=== PATIENT | female | born 1960 | race Two or more races ===

== ENCOUNTER 2023-03-08 21:56 | Inpatient (IN) | payer MEDICARE, MEDICAID ==
[~2023-03-08] VITALS: Ht 157.5 cm; Wt 72.0 kg
[2023-03-08 23:20] LABS: Basophils # (auto) 0.1 10 ^3/uL (0-0.2); Basophils % (auto) 1.4 % (0.0-2.0); Eosinophils # (auto) 0.7 10 ^3/uL (0-0.8); Eosinophils % (auto) 8.4 % (0.0-7.0); Hematocrit 37.3 % (36.0-46.0); Hemoglobin 12.2 g/dL (12.2-16.2); Lymphocytes # (auto) 3.9 10 ^3/uL (0.4-5.4); Lymphocytes % (auto) 46.2 % (10.0-50.0); Mean Corpuscular Hemoglobin 29.8 pg (28.0-32.0); Mean Corpuscular Hgb Conc. 32.7 g/dL (32.0-36.0); Mean Corpuscular Volume 91.3 fL (80.0-100.0); Monocytes % (auto) 12.2 % (0.0-12.0); Neutrophils # (auto) 2.7 10 ^3/uL (1.6-8.6); Neutrophils % (auto) 31.8 % (37.0-80.0); Red Blood Cells 4.09 10^6/uL (4.0-5.20); Red Cell Distribution Width 14.8 % (11.8-14.3); White Blood Cell 8.4 10^3/uL (4.4-10.8)
[2023-03-08 23:34] LABS: Alanine Aminotransferase 17 U/L (7-40); Albumin 3.7 g/dL (3.2-4.8); Alkaline Phosphatase 123 U/L (46-116); Anion Gap 6 (5-15); Aspartate Aminotransferase 27 U/L (13-40); BUN/Creatinine Ratio 13.6 (10.0-20.0); Bilirubin, Total 0.6 mg/dL (0.2-1.0); Blood Alcohol < 3.0 mg/dL (<10); Blood Urea Nitrogen 9 mg/dL (9-23); Calcium 8.9 mg/dL (8.7-10.4); Carbon Dioxide 26 mmol/L (20-30); Chloride 108 mmol/L (98-107); Glucose 101 mg/dL (74-106); INR 1.1 (0.9-1.15); Magnesium 1.9 mg/dL (1.6-2.6); Partial Thromboplastin Time 27.3 SEC (24.5-34.5); Potassium 3.7 mmol/L (3.5-5.1); Prothrombin Time 11.5 sec (9.3-11.8); Sodium 140 mmol/L (136-145)
[2023-03-09 00:23] LABS: Large Platelets FEW; Platelet Estimate Adequate
[2023-03-09 05:45] LABS: Urine Bacteria NONE SEEN /hpf (None Seen); Urine Blood Negative /uL (Negative); Urine Clarity HAZY (Clear); Urine Color Yellow (Yellow); Urine Mucus FEW (None Seen); Urine Protein, UAD 2+ (Negative); Urine Specific Gravity 1.022 (1.001-1.035); Urine Urobilinogen Normal (Negative); Urine WBC 4 /hpf (0 - 5)
[2023-03-09 06:30] VITALS: PULSE 98; RESP 18; O2SAT 97
[2023-03-09 06:33] LABS: Amphetamine Screen, Urine Neg (NEGATIVE); Barbiturate Scree,Urine Neg (NEGATIVE); Benzodiazephine Screen, Urine Neg (NEGATIVE); Cannabinoid Screen, Urine Neg (NEGATIVE); Cocaine Screen, Urine Neg (NEGATIVE); Opiate Scree,Urine Pos (NEGATIVE); Phencyclidine Screen, Urine Neg (NEGATIVE)
[2023-03-09] MEDS ORDERED: ACETAMINOPHEN 325 MG TAB PO PRN (07:30)
[2023-03-09] MEDS ORDERED: ONDANSETRON HCL 4 MG/2 ML VIAL IV PRN (07:30)
[2023-03-09] MEDS: LACTULOSE 20Gm/30ML SOLN PO SCH ×3 (07:57→22:42)
[2023-03-09] MEDS: HYDROcodone-ACET 5/325MG TAB PO PRN ×2 (07:57→22:43)
[2023-03-09] MEDS: ENOXAPARIN SOD 40 MG/0.4 ML SYRINGE SC SCH (10:27)
[2023-03-09 13:25] LABS: Basophils # (auto) 0.1 10 ^3/uL (0-0.2); Basophils % (auto) 1.8 % (0.0-2.0); Eosinophils # (auto) 0.4 10 ^3/uL (0-0.8); Eosinophils % (auto) 5.1 % (0.0-7.0); Hematocrit 34.4 % (36.0-46.0); Hemoglobin 11.4 g/dL (12.2-16.2); Lymphocytes # (auto) 2.8 10 ^3/uL (0.4-5.4); Lymphocytes % (auto) 40.5 % (10.0-50.0); Mean Corpuscular Volume 90.8 fL (80.0-100.0); Monocytes # (auto) 0.8 10 ^3/uL (0-1.3); Monocytes % (auto) 11.6 % (0.0-12.0); Neutrophils # (auto) 2.8 10 ^3/uL (1.6-8.6); Red Blood Cells 3.79 10^6/uL (4.0-5.20); Red Cell Distribution Width 14.9 % (11.8-14.3); White Blood Cell 6.9 10^3/uL (4.4-10.8)
[2023-03-09 13:53] LABS: Alanine Aminotransferase 16 U/L (7-40); Albumin 3.3 g/dL (3.2-4.8); Alkaline Phosphatase 116 U/L (46-116); Anion Gap 6 (5-15); Aspartate Aminotransferase 30 U/L (13-40); BUN/Creatinine Ratio 14.7 (10.0-20.0); Blood Urea Nitrogen 10 mg/dL (9-23); Calcium 8.4 mg/dL (8.7-10.4); Carbon Dioxide 23 mmol/L (20-30); Chloride 107 mmol/L (98-107); Glucose 303 mg/dL (74-106); Magnesium 1.8 mg/dL (1.6-2.6); Potassium 3.8 mmol/L (3.5-5.1); Sodium 136 mmol/L (136-145)
[2023-03-09 13:54] LABS: Bilirubin, Total 0.8 mg/dL (0.2-1.0); Total Protein 7.2 g/dL (5.7-8.2)
[2023-03-09] MEDS ORDERED: IOHEXOL 350 MG/ML 100ML IJ ONE (14:10)
[2023-03-09] MEDS: SODIUM CHLOR 0.9% PF (SALINE LOCK) 10ML VIAL/SYR IV SCH ×2 (14:21→22:43)
[2023-03-09] MEDS ORDERED: LORazepam 2MG/ML-1ML VIAL IV ONE (14:30)
[2023-03-09 19:20] VITALS: PULSE 97; RESP 20; O2SAT 96
[2023-03-09] MEDS ORDERED: METOPROLOL TARTRATE 25 MG TAB PO SCH (22:00)
[2023-03-09] MEDS ORDERED: DEXTROSE (50%) 50ML SYRG IV PRN (23:15)
[2023-03-09] MEDS ORDERED: HYDR-4902 PO (23:19)
[2023-03-09] MEDS ORDERED: RIFA550T PO (23:19)
[2023-03-09] MEDS ORDERED: INSLANTI SC (23:19)
[2023-03-09] MEDS ORDERED: OMEP20TA85 PO (23:19)
[2023-03-09] MEDS ORDERED: PANC3000 PO (23:19)
[2023-03-09] MEDS ORDERED: METO-289 PO (23:19)
[2023-03-09] MEDS ORDERED: LACT10SO3 PO (23:19)
[2023-03-09] MEDS ORDERED: INSU100I28 IJ (23:20)
[2023-03-09] MEDS: ACCU-CHEK COMFORT CURVE STRIP VI SCH (23:25)
[2023-03-09] MEDS: InsuLIN REG 1unit/0.01ml Soln (100units/ml) SC SCH (23:26)
[2023-03-10] MEDS: HYDROcodone-ACET 5/325MG TAB PO PRN ×3 (04:14→17:14)
[2023-03-10] MEDS: LACTULOSE 20Gm/30ML SOLN PO SCH ×3 (06:35→21:45)
[2023-03-10] MEDS: SODIUM CHLOR 0.9% PF (SALINE LOCK) 10ML VIAL/SYR IV SCH ×3 (06:36→21:46)
[2023-03-10] MEDS: ACCU-CHEK COMFORT CURVE STRIP VI SCH ×4 (06:36→21:01)
[2023-03-10] MEDS: InsuLIN REG 1unit/0.01ml Soln (100units/ml) SC SCH ×4 (06:37→21:54)
[2023-03-10] MEDS ORDERED: DEXTROSE (50%) 50ML SYRG IV PRN (07:15)
[2023-03-10 07:40] VITALS: PULSE 79; RESP 18; O2SAT 98
[2023-03-10 07:53] LABS: Basophils # (auto) 0.1 10 ^3/uL (0-0.2); Basophils % (auto) 2.2 % (0.0-2.0); Eosinophils # (auto) 0.6 10 ^3/uL (0-0.8); Eosinophils % (auto) 9.8 % (0.0-7.0); Hematocrit 35.2 % (36.0-46.0); Hemoglobin 11.2 g/dL (12.2-16.2); Lymphocytes # (auto) 3.1 10 ^3/uL (0.4-5.4); Mean Corpuscular Volume 90.6 fL (80.0-100.0); Monocytes # (auto) 0.7 10 ^3/uL (0-1.3); Monocytes % (auto) 10.4 % (0.0-12.0); Neutrophils # (auto) 1.9 10 ^3/uL (1.6-8.6); Neutrophils % (auto) 29.6 % (37.0-80.0); Nucleated Red Blood Cells % 0.1 %; Red Blood Cells 3.88 10^6/uL (4.0-5.20); Red Cell Distribution Width 14.7 % (11.8-14.3); White Blood Cell 6.4 10^3/uL (4.4-10.8)
[2023-03-10 08:03] LABS: Alanine Aminotransferase 17 U/L (7-40); Albumin 3.4 g/dL (3.2-4.8); Alkaline Phosphatase 125 U/L (46-116); Anion Gap 7 (5-15); Aspartate Aminotransferase 28 U/L (13-40); BUN/Creatinine Ratio 10.8 (10.0-20.0); Blood Urea Nitrogen 7 mg/dL (9-23); Calcium 8.9 mg/dL (8.5-10.1); Carbon Dioxide 25 mmol/L (20-30); Chloride 106 mmol/L (98-107); Cholesterol 122 mg/dL (< 200); Glucose 184 mg/dL (74-106); LDL Cholesterol 92 mg/dL (< 100); Potassium 3.9 mmol/L (3.5-5.1); Sodium 138 mmol/L (136-145); Triglycerides 51 mg/dL (< 150)
[2023-03-10 08:04] LABS: Bilirubin, Total 0.6 mg/dL (0.2-1.0); HDL Cholesterol 32 mg/dL (40-59); Total Protein 7.3 g/dL (5.7-8.2)
[2023-03-10] MEDS ORDERED: INSULIN LANTUS (GLARGINE) 1 /0.01ml (100units/ml) SC ONE (08:30)
[2023-03-10] MEDS ORDERED: PANTOPRAZOLE 40 MG/10 ML VIAL INJ IV SCH (10:00)
[2023-03-10 10:24] LABS: Folate (Folic Acid) > 24.00 ng/mL (>5.38)
[2023-03-10] MEDS: rifAXIMin 550 MG TAB PO SCH ×2 (12:26→21:43)
[2023-03-10] MEDS: ENOXAPARIN SOD 40 MG/0.4 ML SYRINGE SC SCH (12:26)
[2023-03-10] MEDS: METOPROLOL SUCCINATE XL 50 MG TAB PO SCH (12:28)
[2023-03-10] MEDS ORDERED: HYDR-4798 PO (12:42)
[2023-03-10] MEDS ORDERED: PANC12002 PO (12:43)
[2023-03-10 13:00] VITALS: BP 139/55; PULSE 82; RESP 19; TEMP 97.9; O2SAT 98
[2023-03-10] MEDS ORDERED: METO25TA93 PO (14:37)
[2023-03-10] MEDS ORDERED: HYDROCORTISONE SOD SUCC 100 MG/2ML INJ VIAL IV ONE (15:45)
[2023-03-10] MEDS ORDERED: ERGOCALCIFEROL 50,000 UNIT(1.25MG) CAP PO SCH (15:45)
[2023-03-10] MEDS ORDERED: CYANOCOBALAMIN (B-12) 1000 MCG/1 ML VIAL IM ONE (15:45)
[2023-03-10 17:00] VITALS: BP 138/58; PULSE 77; RESP 19; TEMP 97.9; O2SAT 96
[2023-03-10] MEDS: [UNRECOGNIZED DRUG - OTHER] PO SCH (18:00)
[2023-03-10] MEDS: PANCRELIPASE PO SCH (18:00)
[2023-03-10 22:48] VITALS: BP 130/59; PULSE 77; RESP 18; TEMP 97.7; O2SAT 98
[2023-03-11] MEDS: HYDROcodone-ACET 10/325MG TAB PO PRN ×3 (01:32→20:56)
[2023-03-11 05:08] VITALS: BP 133/55; PULSE 85; RESP 18; TEMP 97.7; O2SAT 97
[2023-03-11] MEDS: SODIUM CHLOR 0.9% PF (SALINE LOCK) 10ML VIAL/SYR IV SCH ×3 (06:03→20:53)
[2023-03-11] MEDS: LACTULOSE 20Gm/30ML SOLN PO SCH ×5 (06:03→20:56)
[2023-03-11] MEDS: ACCU-CHEK COMFORT CURVE STRIP VI SCH ×4 (06:03→20:56)
[2023-03-11] MEDS: HYDROcodone-ACET 5/325MG TAB PO PRN (06:04)
[2023-03-11] MEDS: InsuLIN REG 1unit/0.01ml Soln (100units/ml) SC SCH ×4 (06:07→21:10)
[2023-03-11] MEDS: INSULIN LANTUS (GLARGINE) 1 /0.01ml (100units/ml) SC SCH (06:07)
[2023-03-11 06:18] LABS: Basophils # (auto) 0.2 10 ^3/uL (0-0.2); Basophils % (auto) 2.9 % (0.0-2.0); Eosinophils # (auto) 0.8 10 ^3/uL (0-0.8); Eosinophils % (auto) 13.6 % (0.0-7.0); Hematocrit 34.5 % (36.0-46.0); Hemoglobin 11.4 g/dL (12.2-16.2); Lymphocytes # (auto) 2.8 10 ^3/uL (0.4-5.4); Lymphocytes % (auto) 50.7 % (10.0-50.0); Mean Corpuscular Hemoglobin 29.7 pg (28.0-32.0); Mean Corpuscular Hgb Conc. 33.1 g/dL (32.0-36.0); Mean Corpuscular Volume 89.8 fL (80.0-100.0); Monocytes # (auto) 0.5 10 ^3/uL (0-1.3); Neutrophils # (auto) 1.3 10 ^3/uL (1.6-8.6); Neutrophils % (auto) 23.8 % (37.0-80.0); Nucleated Red Blood Cells % 0.1 %; Red Blood Cells 3.84 10^6/uL (4.0-5.20); Red Cell Distribution Width 14.5 % (11.8-14.3); White Blood Cell 5.6 10^3/uL (4.4-10.8)
[2023-03-11 06:30] LABS: Alanine Aminotransferase 18 U/L (7-40); Albumin 3.4 g/dL (3.2-4.8); Alkaline Phosphatase 131 U/L (46-116); Anion Gap 5 (5-15); Aspartate Aminotransferase 30 U/L (13-40); BUN/Creatinine Ratio 5.8 (10.0-20.0); Blood Urea Nitrogen 5 mg/dL (9-23); Calcium 8.8 mg/dL (8.7-10.4); Carbon Dioxide 27 mmol/L (20-30); Chloride 104 mmol/L (98-107); Glucose 238 mg/dL (74-106); Magnesium 1.8 mg/dL (1.6-2.6); Potassium 4.2 mmol/L (3.5-5.1); Sodium 136 mmol/L (136-145)
[2023-03-11 06:31] LABS: Bilirubin, Total 0.4 mg/dL (0.2-1.0); Phosphorus 3.4 mg/dL (2.4-5.1); Total Protein 7.5 g/dL (5.7-8.2)
[2023-03-11] MEDS: [UNRECOGNIZED DRUG - OTHER] PO SCH ×3 (08:00→18:03)
[2023-03-11] MEDS: PANCRELIPASE PO SCH ×3 (08:00→18:03)
[2023-03-11 09:22] LABS: Giant Platelets Few; Platelet Estimate Adequate
[2023-03-11 09:26] VITALS: BP 150/69; PULSE 81; RESP 19; TEMP 98.4; O2SAT 98
[2023-03-11] MEDS: ENOXAPARIN SOD 40 MG/0.4 ML SYRINGE SC SCH (09:45)
[2023-03-11] MEDS: PANTOPRAZOLE 40 MG TAB PO SCH (09:45)
[2023-03-11] MEDS: METOPROLOL SUCCINATE XL 50 MG TAB PO SCH (09:45)
[2023-03-11] MEDS: HYDROCORTISONE SOD SUCC 100 MG/2ML INJ VIAL IV SCH (09:45)
[2023-03-11] MEDS: rifAXIMin 550 MG TAB PO SCH ×2 (09:45→20:56)
[2023-03-11] MEDS ORDERED: CYANOCOBALAMIN 500 MCG TAB PO SCH (10:00)
[2023-03-11 12:07] LABS: Anti-Nuclear Antibody Direct Negative (Negative)
[2023-03-11 16:32] VITALS: BP 138/54; PULSE 83; RESP 18; TEMP 98.1; O2SAT 97
[2023-03-11] MEDS ORDERED: INSUINJ37 SC (16:34)
[2023-03-11] MEDS ORDERED: PANC12002 PO (16:34)
[2023-03-11] MEDS ORDERED: RIFA550T PO (16:34)
[2023-03-11] MEDS ORDERED: HYDR-4072 PO (16:34)
[2023-03-11] MEDS ORDERED: INSU100I28 IJ (16:34)
[2023-03-11] MEDS ORDERED: LACT10SO3 PO (16:34)
[2023-03-11] MEDS ORDERED: METO-289 PO (16:34)
[2023-03-11] MEDS ORDERED: OME20T PO (16:34)
[2023-03-11 22:00] VITALS: BP 146/77; PULSE 100; RESP 16; TEMP 98.6; O2SAT 100
[2023-03-12] MEDS: LACTULOSE 20Gm/30ML SOLN PO SCH ×6 (02:00→22:10)
[2023-03-12] MEDS: HYDROcodone-ACET 5/325MG TAB PO PRN ×2 (03:43→20:41)
[2023-03-12 05:00] VITALS: BP 133/62; PULSE 65; RESP 18; TEMP 97.9; O2SAT 100
[2023-03-12 05:40] LABS: Basophils # (auto) 0.2 10 ^3/uL (0-0.2); Basophils % (auto) 1.9 % (0.0-2.0); Eosinophils # (auto) 0.4 10 ^3/uL (0-0.8); Hematocrit 33.5 % (36.0-46.0); Lymphocytes # (auto) 3.8 10 ^3/uL (0.4-5.4); Lymphocytes % (auto) 47.8 % (10.0-50.0); Mean Corpuscular Hemoglobin 29.9 pg (28.0-32.0); Mean Corpuscular Hgb Conc. 32.9 g/dL (32.0-36.0); Mean Corpuscular Volume 90.9 fL (80.0-100.0); Monocytes # (auto) 0.9 10 ^3/uL (0-1.3); Monocytes % (auto) 10.8 % (0.0-12.0); Neutrophils # (auto) 2.8 10 ^3/uL (1.6-8.6); Neutrophils % (auto) 34.5 % (37.0-80.0); Red Blood Cells 3.68 10^6/uL (4.0-5.20); Red Cell Distribution Width 14.1 % (11.8-14.3)
[2023-03-12 05:46] LABS: Alanine Aminotransferase 22 U/L (7-40); Albumin 3.2 g/dL (3.2-4.8); Alkaline Phosphatase 130 U/L (46-116); Anion Gap 6 (5-15); Aspartate Aminotransferase 33 U/L (13-40); Blood Urea Nitrogen 9 mg/dL (9-23); Calcium 8.8 mg/dL (8.7-10.4); Carbon Dioxide 28 mmol/L (20-30); Chloride 103 mmol/L (98-107); Glucose 168 mg/dL (74-106); Magnesium 1.8 mg/dL (1.6-2.6); Potassium 4.1 mmol/L (3.5-5.1); Sodium 137 mmol/L (136-145)
[2023-03-12 05:47] LABS: Bilirubin, Total 0.3 mg/dL (0.2-1.0); Total Protein 6.8 g/dL (5.7-8.2)
[2023-03-12] MEDS: SODIUM CHLOR 0.9% PF (SALINE LOCK) 10ML VIAL/SYR IV SCH ×3 (05:52→22:23)
[2023-03-12] MEDS: HYDROcodone-ACET 10/325MG TAB PO PRN ×3 (05:53→23:59)
[2023-03-12] MEDS: ACCU-CHEK COMFORT CURVE STRIP VI SCH ×4 (05:58→22:10)
[2023-03-12] MEDS: InsuLIN REG 1unit/0.01ml Soln (100units/ml) SC SCH ×4 (05:59→22:22)
[2023-03-12] MEDS: INSULIN LANTUS (GLARGINE) 1 /0.01ml (100units/ml) SC SCH (06:02)
[2023-03-12] MEDS: [UNRECOGNIZED DRUG - OTHER] PO SCH ×3 (08:41→18:05)
[2023-03-12] MEDS: PANCRELIPASE PO SCH ×3 (08:41→18:05)
[2023-03-12 09:00] VITALS: BP 123/59; PULSE 76; RESP 20; TEMP 98.1; O2SAT 95
[2023-03-12] MEDS ORDERED: CYANOCOBALAMIN (B-12) 1000 MCG/1 ML VIAL IM ONE (10:00)
[2023-03-12] MEDS: ENOXAPARIN SOD 40 MG/0.4 ML SYRINGE SC SCH (10:35)
[2023-03-12] MEDS: HYDROCORTISONE SOD SUCC 100 MG/2ML INJ VIAL IV SCH (10:35)
[2023-03-12] MEDS: CYANOCOBALAMIN 500 MCG TAB PO SCH (10:36)
[2023-03-12] MEDS: PANTOPRAZOLE 40 MG TAB PO SCH (10:36)
[2023-03-12] MEDS: rifAXIMin 550 MG TAB PO SCH ×2 (10:36→22:10)
[2023-03-12] MEDS: METOPROLOL SUCCINATE XL 50 MG TAB PO SCH (10:37)
[2023-03-12 13:17] VITALS: BP 144/64; PULSE 86; RESP 16; TEMP 98.3; O2SAT 96
[2023-03-12 15:07] LABS: Mitochondrial (M2) Antibody <20.0 Units (0.0-20.0)
[2023-03-12 17:00] VITALS: BP 131/52; PULSE 85; RESP 20; TEMP 97.6; O2SAT 94
[2023-03-12] MEDS ORDERED: CALAMINE TOPical LOTION180 ML TOP PRN (18:45)
[2023-03-12] MEDS ORDERED: CALAMINE TOPical LOTION180 ML TOP ONE (18:45)
[2023-03-12 20:00] VITALS: PULSE 87; RESP 22
[2023-03-12 22:00] VITALS: BP 146/68; PULSE 87; RESP 22; TEMP 97.5; O2SAT 95
[2023-03-12] MEDS: HYDROCORTONE 1% TOPICAL CREAM 30 GM TUBE TOP SCH (22:10)
[2023-03-13] MEDS: LACTULOSE 20Gm/30ML SOLN PO SCH ×6 (02:03→21:24)
[2023-03-13 05:00] VITALS: BP 126/61; PULSE 98; RESP 22; TEMP 97.3; O2SAT 97
[2023-03-13 05:48] LABS: Basophils # (auto) 0.1 10 ^3/uL (0-0.2); Basophils % (auto) 1.8 % (0.0-2.0); Eosinophils # (auto) 0.3 10 ^3/uL (0-0.8); Eosinophils % (auto) 3.6 % (0.0-7.0); Hematocrit 31.4 % (36.0-46.0); Hemoglobin 10.4 g/dL (12.2-16.2); Lymphocytes # (auto) 4.1 10 ^3/uL (0.4-5.4); Mean Corpuscular Hemoglobin 29.5 pg (28.0-32.0); Mean Corpuscular Volume 89.5 fL (80.0-100.0); Monocytes # (auto) 0.8 10 ^3/uL (0-1.3); Monocytes % (auto) 9.6 % (0.0-12.0); Neutrophils # (auto) 2.6 10 ^3/uL (1.6-8.6); Nucleated Red Blood Cells % 0.1 %; Red Cell Distribution Width 14.2 % (11.8-14.3); White Blood Cell 7.8 10^3/uL (4.4-10.8)
[2023-03-13 05:59] LABS: Calcium 8.6 mg/dL (8.7-10.4); Chloride 105 mmol/L (98-107); Potassium 3.4 mmol/L (3.5-5.1); Sodium 138 mmol/L (136-145)
[2023-03-13 06:00] LABS: Anion Gap 6 (5-15); Carbon Dioxide 27 mmol/L (20-30)
[2023-03-13 06:05] LABS: BUN/Creatinine Ratio 7.8 (10.0-20.0); Blood Urea Nitrogen 6 mg/dL (9-23); Glucose 147 mg/dL (74-106)
[2023-03-13] MEDS: InsuLIN REG 1unit/0.01ml Soln (100units/ml) SC SCH ×4 (06:19→21:31)
[2023-03-13] MEDS: ACCU-CHEK COMFORT CURVE STRIP VI SCH ×4 (06:19→21:24)
[2023-03-13] MEDS: INSULIN LANTUS (GLARGINE) 1 /0.01ml (100units/ml) SC SCH (06:21)
[2023-03-13] MEDS: SODIUM CHLOR 0.9% PF (SALINE LOCK) 10ML VIAL/SYR IV SCH ×3 (06:23→21:31)
[2023-03-13] MEDS: HYDROcodone-ACET 5/325MG TAB PO PRN (06:23)
[2023-03-13 07:06] LABS: Homocyst(e)ine 18.2 umol/L (0.0-17.2)
[2023-03-13] MEDS ORDERED: POTASSIUM EFFERVESENT TAB 25 MEQ PO ONE (08:00)
[2023-03-13 09:00] VITALS: BP 153/67; PULSE 93; RESP 20; TEMP 97.8; O2SAT 95
[2023-03-13] MEDS: CYANOCOBALAMIN 500 MCG TAB PO SCH (09:36)
[2023-03-13] MEDS: rifAXIMin 550 MG TAB PO SCH ×2 (09:36→21:24)
[2023-03-13] MEDS: HYDROcodone-ACET 10/325MG TAB PO PRN ×2 (09:36→17:59)
[2023-03-13] MEDS: PANTOPRAZOLE 40 MG TAB PO SCH (09:37)
[2023-03-13] MEDS: METOPROLOL SUCCINATE XL 50 MG TAB PO SCH (09:37)
[2023-03-13] MEDS: ENOXAPARIN SOD 40 MG/0.4 ML SYRINGE SC SCH (09:38)
[2023-03-13] MEDS: HYDROCORTISONE SOD SUCC 100 MG/2ML INJ VIAL IV SCH (09:38)
[2023-03-13] MEDS: HYDROCORTONE 1% TOPICAL CREAM 30 GM TUBE TOP SCH ×2 (09:39→21:32)
[2023-03-13] MEDS: [UNRECOGNIZED DRUG - OTHER] PO SCH ×3 (10:12→17:59)
[2023-03-13] MEDS: PANCRELIPASE PO SCH ×3 (10:12→17:59)
[2023-03-13 10:58] LABS: Albumin 3.2 g/dL (3.2-4.8); Bilirubin, Direct 0.2 mg/dL (<0.3); Bilirubin, Total 0.4 mg/dL (0.2-1.0); Total Protein 6.8 g/dL (5.7-8.2)
[2023-03-13 13:00] VITALS: BP 149/64; PULSE 85; RESP 19; TEMP 98.1; O2SAT 95
[2023-03-13 17:00] VITALS: BP 113/58; PULSE 93; RESP 18; TEMP 97.9; O2SAT 95
[2023-03-13 20:00] VITALS: PULSE 82
[2023-03-13 22:00] VITALS: BP 134/57; PULSE 82; RESP 16; TEMP 98.1; O2SAT 94
[2023-03-14] MEDS: LACTULOSE 20Gm/30ML SOLN PO SCH ×6 (02:07→21:26)
[2023-03-14] MEDS: HYDROcodone-ACET 10/325MG TAB PO PRN ×2 (02:13→11:37)
[2023-03-14 05:00] VITALS: BP 146/60; PULSE 80; RESP 18; TEMP 98.1; O2SAT 95
[2023-03-14] MEDS: ACCU-CHEK COMFORT CURVE STRIP VI SCH ×4 (06:19→21:12)
[2023-03-14] MEDS: InsuLIN REG 1unit/0.01ml Soln (100units/ml) SC SCH ×4 (06:26→21:20)
[2023-03-14] MEDS: INSULIN LANTUS (GLARGINE) 1 /0.01ml (100units/ml) SC SCH (06:26)
[2023-03-14] MEDS: SODIUM CHLOR 0.9% PF (SALINE LOCK) 10ML VIAL/SYR IV SCH ×3 (06:27→21:27)
[2023-03-14 07:39] LABS: Basophils # (auto) 0.3 10 ^3/uL (0-0.2); Basophils % (auto) 2.9 % (0.0-2.0); Eosinophils # (auto) 0.4 10 ^3/uL (0-0.8); Hematocrit 31.6 % (36.0-46.0); Hemoglobin 10.2 g/dL (12.2-16.2); Lymphocytes % (auto) 54.7 % (10.0-50.0); Mean Corpuscular Hemoglobin 29.5 pg (28.0-32.0); Mean Corpuscular Hgb Conc. 32.3 g/dL (32.0-36.0); Mean Corpuscular Volume 91.3 fL (80.0-100.0); Monocytes # (auto) 0.8 10 ^3/uL (0-1.3); Neutrophils # (auto) 2.7 10 ^3/uL (1.6-8.6); Neutrophils % (auto) 29.4 % (37.0-80.0); Nucleated Red Blood Cells % 0.1 %; Red Blood Cells 3.46 10^6/uL (4.0-5.20); Red Cell Distribution Width 14.7 % (11.8-14.3); White Blood Cell 9.2 10^3/uL (4.4-10.8)
[2023-03-14 07:48] LABS: Alanine Aminotransferase 28 U/L (7-40); Alkaline Phosphatase 114 U/L (46-116); Anion Gap 11 (5-15); Aspartate Aminotransferase 37 U/L (13-40); BUN/Creatinine Ratio 6.5 (10.0-20.0); Bilirubin, Total 0.3 mg/dL (0.2-1.0); Blood Urea Nitrogen 5 mg/dL (9-23); Calcium 8.7 mg/dL (8.5-10.1); Carbon Dioxide 23 mmol/L (20-30); Chloride 104 mmol/L (98-107); Glucose 216 mg/dL (74-106); Potassium 3.9 mmol/L (3.5-5.1); Sodium 138 mmol/L (136-145); Total Protein 6.6 g/dL (5.7-8.2)
[2023-03-14 08:10] VITALS: PULSE 83; RESP 18; O2SAT 94
[2023-03-14 08:30] VITALS: BP 138/63; PULSE 83; RESP 18; TEMP 98; O2SAT 94
[2023-03-14] MEDS: HYDROCORTISONE SOD SUCC 100 MG/2ML INJ VIAL IV SCH (09:36)
[2023-03-14] MEDS: ENOXAPARIN SOD 40 MG/0.4 ML SYRINGE SC SCH (09:37)
[2023-03-14] MEDS: PANTOPRAZOLE 40 MG TAB PO SCH (09:37)
[2023-03-14] MEDS: rifAXIMin 550 MG TAB PO SCH ×2 (09:37→21:26)
[2023-03-14] MEDS: HYDROCORTONE 1% TOPICAL CREAM 30 GM TUBE TOP SCH ×2 (09:38→21:27)
[2023-03-14] MEDS: METOPROLOL SUCCINATE XL 50 MG TAB PO SCH (09:38)
[2023-03-14] MEDS: PANCRELIPASE PO SCH ×3 (09:39→18:01)
[2023-03-14] MEDS: [UNRECOGNIZED DRUG - OTHER] PO SCH ×3 (09:39→18:01)
[2023-03-14 12:31] LABS: Urine Bacteria FEW /hpf (None Seen); Urine Blood Negative /uL (Negative); Urine Clarity Clear (Clear); Urine Color Yellow (Yellow); Urine Protein, UAD 1+ (Negative); Urine Specific Gravity 1.018 (1.001-1.035); Urine Urobilinogen Normal (Negative); Urine WBC <1 /hpf (0 - 5)
[2023-03-14 12:48] VITALS: BP 137/57; PULSE 89; RESP 18; TEMP 98.2; O2SAT 96
[2023-03-14 16:02] VITALS: BP 114/64; PULSE 84; RESP 19; TEMP 98.6; O2SAT 95
[2023-03-14] MEDS: HYDROcodone-ACET 7.5/325MG TAB PO PRN ×2 (17:14→21:27)
[2023-03-14 20:06] LABS: Gastrin 55 pg/mL (0-115)
[2023-03-14 22:00] VITALS: BP 139/77; PULSE 82; RESP 18; TEMP 97.4; O2SAT 97
[2023-03-15] VITALS (8 sets, daily range): BP systolic 146–158; BP diastolic 70–75; PULSE 78–87; RESP 16–20; TEMP 97.9–98.8; O2SAT 95–98
[2023-03-15] MEDS: LACTULOSE 20Gm/30ML SOLN PO SCH ×6 (03:18→21:16)
[2023-03-15 05:28] LABS: Hematocrit 36.4 % (36.0-46.0); Hemoglobin 11.8 g/dL (12.2-16.2); Mean Corpuscular Hemoglobin 29.2 pg (28.0-32.0); Mean Corpuscular Hgb Conc. 32.4 g/dL (32.0-36.0); Mean Corpuscular Volume 90.2 fL (80.0-100.0); Red Blood Cells 4.03 10^6/uL (4.0-5.20); Red Cell Distribution Width 14.4 % (11.8-14.3); White Blood Cell 9.2 10^3/uL (4.4-10.8)
[2023-03-15 05:42] LABS: Basophils % (manual) 0 (0.0-2.0); Blast Cells 0; Myelocytes % 0; Promyelocytes % 0; Reactive Lymphocytes 0
[2023-03-15] MEDS: SODIUM CHLOR 0.9% PF (SALINE LOCK) 10ML VIAL/SYR IV SCH ×3 (05:48→21:19)
[2023-03-15] MEDS: HYDROcodone-ACET 7.5/325MG TAB PO PRN (05:48)
[2023-03-15 05:52] LABS: Alanine Aminotransferase 36 U/L (7-40); Albumin 3.7 g/dL (3.2-4.8); Alkaline Phosphatase 126 U/L (46-116); Anion Gap 8 (5-15); Aspartate Aminotransferase 53 U/L (13-40); Bilirubin, Total 0.5 mg/dL (0.2-1.0); Blood Urea Nitrogen 5 mg/dL (9-23); CRP High Sensitivity < 0.02 mg/dL (<1.0); Calcium 9.2 mg/dL (8.5-10.1); Carbon Dioxide 28 mmol/L (20-30); Chloride 103 mmol/L (98-107); Glucose 138 mg/dL (74-106); Potassium 3.5 mmol/L (3.5-5.1); Sodium 139 mmol/L (136-145); Total Protein 7.8 g/dL (5.7-8.2)
[2023-03-15] MEDS: ACCU-CHEK COMFORT CURVE STRIP VI SCH ×4 (06:26→21:16)
[2023-03-15] MEDS: InsuLIN REG 1unit/0.01ml Soln (100units/ml) SC SCH ×4 (06:30→21:33)
[2023-03-15] MEDS: INSULIN LANTUS (GLARGINE) 1 /0.01ml (100units/ml) SC SCH (06:31)
[2023-03-15 06:44] LABS: Erythrocyte Sedimentation Rate 35 mm/hr (0-20)
[2023-03-15] MEDS: rifAXIMin 550 MG TAB PO SCH ×2 (10:48→21:16)
[2023-03-15] MEDS: ENOXAPARIN SOD 40 MG/0.4 ML SYRINGE SC SCH (10:48)
[2023-03-15] MEDS: HYDROCORTISONE SOD SUCC 100 MG/2ML INJ VIAL IV SCH (10:48)
[2023-03-15] MEDS: PANTOPRAZOLE 40 MG TAB PO SCH (10:49)
[2023-03-15] MEDS: METOPROLOL SUCCINATE XL 50 MG TAB PO SCH (10:49)
[2023-03-15] MEDS: PANCRELIPASE PO SCH ×3 (10:50→17:53)
[2023-03-15] MEDS: [UNRECOGNIZED DRUG - OTHER] PO SCH ×3 (10:50→17:53)
[2023-03-15] MEDS: HYDROCORTONE 1% TOPICAL CREAM 30 GM TUBE TOP SCH ×2 (10:51→21:37)
[2023-03-15 11:54] LABS: Band Neutrophils % (manual) 9; Eosinophils % (manual) 5 (0-7); Lymphocytes % (manual) 59 (10.0-50.0); Metamyelocytes % 1; Monocytes % (manual) 1 (0-12); Platelet Estimate Adequate
[2023-03-15] MEDS: HYDROmorphone HCL 2 MG/ML VL/or syr IV PRN ×2 (14:17→21:15)
[2023-03-16] MEDS: LACTULOSE 20Gm/30ML SOLN PO SCH ×4 (01:33→13:51)
[2023-03-16] MEDS: HYDROcodone-ACET 7.5/325MG TAB PO PRN ×2 (01:34→10:51)
[2023-03-16 05:00] VITALS: BP 129/61; PULSE 80; RESP 18; TEMP 98.2; O2SAT 96
[2023-03-16 06:13] LABS: Basophils # (auto) 0.1 10 ^3/uL (0-0.2); Basophils % (auto) 1.1 % (0.0-2.0); Eosinophils # (auto) 0.4 10 ^3/uL (0-0.8); Eosinophils % (auto) 3.6 % (0.0-7.0); Hematocrit 33.2 % (36.0-46.0); Lymphocytes % (auto) 49.8 % (10.0-50.0); Mean Corpuscular Hemoglobin 29.7 pg (28.0-32.0); Mean Corpuscular Hgb Conc. 33.2 g/dL (32.0-36.0); Mean Corpuscular Volume 89.6 fL (80.0-100.0); Monocytes % (auto) 9.6 % (0.0-12.0); Neutrophils # (auto) 3.6 10 ^3/uL (1.6-8.6); Neutrophils % (auto) 35.9 % (37.0-80.0); Nucleated Red Blood Cells % 0.1 %; Red Blood Cells 3.71 10^6/uL (4.0-5.20); Red Cell Distribution Width 14.4 % (11.8-14.3)
[2023-03-16] MEDS: SODIUM CHLOR 0.9% PF (SALINE LOCK) 10ML VIAL/SYR IV SCH ×2 (06:16→13:51)
[2023-03-16] MEDS: ACCU-CHEK COMFORT CURVE STRIP VI SCH ×2 (06:21→11:15)
[2023-03-16] MEDS: InsuLIN REG 1unit/0.01ml Soln (100units/ml) SC SCH ×2 (06:24→11:16)
[2023-03-16] MEDS: HYDROmorphone HCL 2 MG/ML VL/or syr IV PRN (06:32)
[2023-03-16 06:33] LABS: Alanine Aminotransferase 31 U/L (7-40); Albumin 3.4 g/dL (3.2-4.8); Alkaline Phosphatase 115 U/L (46-116); Anion Gap 9 (5-15); Aspartate Aminotransferase 43 U/L (13-40); BUN/Creatinine Ratio 7.3 (10.0-20.0); Bilirubin, Total 0.4 mg/dL (0.2-1.0); Blood Urea Nitrogen 7 mg/dL (9-23); Calcium 8.5 mg/dL (8.7-10.4); Carbon Dioxide 27 mmol/L (20-30); Chloride 102 mmol/L (98-107); Glucose 152 mg/dL (74-106); Potassium 4.1 mmol/L (3.5-5.1); Sodium 138 mmol/L (136-145); Total Protein 7.1 g/dL (5.7-8.2)
[2023-03-16] MEDS: INSULIN LANTUS (GLARGINE) 1 /0.01ml (100units/ml) SC SCH (06:36)
[2023-03-16 08:00] VITALS: PULSE 82; RESP 18; O2SAT 98
[2023-03-16] MEDS: [UNRECOGNIZED DRUG - OTHER] PO SCH ×2 (08:00→11:58)
[2023-03-16] MEDS: PANCRELIPASE PO SCH ×2 (08:00→11:58)
[2023-03-16] MEDS: ENOXAPARIN SOD 40 MG/0.4 ML SYRINGE SC SCH (08:40)
[2023-03-16] MEDS: HYDROCORTISONE SOD SUCC 100 MG/2ML INJ VIAL IV SCH (08:41)
[2023-03-16] MEDS: rifAXIMin 550 MG TAB PO SCH (08:41)
[2023-03-16] MEDS: METOPROLOL SUCCINATE XL 50 MG TAB PO SCH (08:42)
[2023-03-16] MEDS: PANTOPRAZOLE 40 MG TAB PO SCH (08:42)
[2023-03-16] MEDS: HYDROCORTONE 1% TOPICAL CREAM 30 GM TUBE TOP SCH (08:43)
[2023-03-16 10:04] VITALS: BP 114/69; PULSE 82; RESP 19; TEMP 98.2; O2SAT 98
[2023-03-16 10:14] VITALS: BP 114/69; PULSE 82; RESP 19; TEMP 98.2; O2SAT 98
[2023-03-16 12:47] VITALS: BP 125/62; PULSE 76; RESP 18; TEMP 97.8; O2SAT 98
[2023-03-16] MEDS ORDERED: HYDR-4072 PO (13:41)
[2023-03-16] MEDS ORDERED: LACT10SO3 PO (13:41)
[2023-03-16 13:54] VITALS: BP 114/69; PULSE 82
[2023-03-16] MEDS ORDERED: METH4PAK PO (20:44)
[2023-03-21 16:06] LABS: Cortisol Free ug/24hr Ur 1833 ug/24 hr (6-42); Cortisol Free ug/L Ur 611 ug/L (Undefined)
== END 2023-03-16 15:37 | disposition home health service (06) | DRG 642 ==
LOC: EDBD 21:56 → ER 21:56 → OVERFLOW 03-09 07:33 → CENTRAL 03-10 14:38
PROVIDERS: ADMIT Internal Medicine; ATTEND Internal Medicine
DX: E72.20 Disorder of urea cycle metabolism, unspecified (principal); G92.8 Other toxic encephalopathy; E11.9 Type 2 diabetes mellitus without complications; E86.0 Dehydration; K76.0 Fatty (change of) liver, not elsewhere classified; R74.8 Abnormal levels of other serum enzymes; M48.061 Spinal stenosis, lumbar region without neurogenic claudication; E55.9 Vitamin D deficiency, unspecified; E53.8 Deficiency of other specified B group vitamins; D64.9 Anemia, unspecified; I10 Essential (primary) hypertension; Z85.07 Personal history of malignant neoplasm of pancreas; Z90.81 Acquired absence of spleen; Z90.49 Acquired absence of other specified parts of digestive tract; Z90.411 Acquired partial absence of pancreas
CPT/HCPCS: 36415; 70450; 70551; 71045; 72148; 74178; 76536; 76705; 80048; 80053; 80061; 80076; 80307; 80320; 81001; 82010; 82105; 82140; 82306; 82530; 82533; 82550; 82607; 82746; 82941; 82962; 83036; 83090; 83540; 83550; 83605; 83615; 83735; 83970; 84100; 84146; 84260; 84443; 84484; 84550; 85007; 85025; 85027; 85610; 85652; 85730; 86038; 86141; 87040; 87086; 93005; 97110; 97116; 97163; 97530; C9113; G0378; J1815

== ENCOUNTER 2023-03-17 19:39 | Inpatient (IN) | payer MEDICARE, MEDICAID ==
[~2023-03-17] VITALS: Ht 172.7 cm; Wt 65.6 kg
[~2023-03-17 19:39] MED LIST: HYDR-4072 PO; INSU100I28 IJ; INSUINJ37 SC; LACT10SO3 PO; METH4PAK PO; METO-289 PO; OME20T PO; PANC12002 PO; RIFA550T PO
[2023-03-17 21:20] LABS: Basophils # (auto) 0.2 10 ^3/uL (0-0.2); Basophils % (auto) 1.9 % (0.0-2.0); Eosinophils # (auto) 0.7 10 ^3/uL (0-0.8); Eosinophils % (auto) 8.8 % (0.0-7.0); Hematocrit 32.9 % (36.0-46.0); Hemoglobin 10.6 g/dL (12.2-16.2); Lymphocytes % (auto) 50.5 % (10.0-50.0); Mean Corpuscular Hgb Conc. 32.3 g/dL (32.0-36.0); Mean Corpuscular Volume 89.7 fL (80.0-100.0); Monocytes % (auto) 12.3 % (0.0-12.0); Neutrophils # (auto) 2.1 10 ^3/uL (1.6-8.6); Neutrophils % (auto) 26.5 % (37.0-80.0); Nucleated Red Blood Cells % 0.1 %; Red Blood Cells 3.67 10^6/uL (4.0-5.20); Red Cell Distribution Width 14.4 % (11.8-14.3); White Blood Cell 7.9 10^3/uL (4.4-10.8)
[2023-03-17 21:46] LABS: Alanine Aminotransferase 26 U/L (7-40); Albumin 3.3 g/dL (3.2-4.8); Alkaline Phosphatase 122 U/L (46-116); Anion Gap 8 (5-15); Aspartate Aminotransferase 30 U/L (13-40); BUN/Creatinine Ratio 10.6 (10.0-20.0); Blood Urea Nitrogen 9 mg/dL (9-23); Calcium 8.5 mg/dL (8.7-10.4); Carbon Dioxide 25 mmol/L (20-30); Chloride 108 mmol/L (98-107); Glucose 126 mg/dL (74-106); Potassium 3.6 mmol/L (3.5-5.1); Sodium 141 mmol/L (136-145)
[2023-03-17 21:47] LABS: Bilirubin, Total 0.3 mg/dL (0.2-1.0); Total Protein 6.7 g/dL (5.7-8.2)
[2023-03-17] MEDS ORDERED: LACTULOSE 20Gm/30ML SOLN PO ONE (22:15)
[2023-03-18] MEDS ORDERED: ACETAMINOPHEN 325 MG TAB PO PRN
[2023-03-18] MEDS ORDERED: ONDANSETRON HCL 4 MG/2 ML VIAL IV PRN
[2023-03-18] MEDS ORDERED: DOCUSATE SOD 100 MG CAP PO PRN
[2023-03-18] MEDS ORDERED: HYDROcodone-ACET 5/325MG TAB PO PRN
[2023-03-18 02:20] VITALS: PULSE 109; RESP 20; O2SAT 98
[2023-03-18] MEDS: LACTULOSE 20Gm/30ML SOLN PO SCH ×5 (03:16→20:00)
[2023-03-18] MEDS ORDERED: HALOPERIDOL LACTATE 5 MG/ML INJ VIAL IM ONE (03:30)
[2023-03-18 05:55] LABS: Urine Bacteria NONE SEEN /hpf (None Seen); Urine Blood Negative /uL (Negative); Urine Clarity Clear (Clear); Urine Color Colorless (Yellow); Urine Protein, UAD 1+ (Negative); Urine Specific Gravity 1.024 (1.001-1.035); Urine Urobilinogen Normal (Negative); Urine WBC <1 /hpf (0 - 5); Urine pH 7.5 (5.0-8.0)
[2023-03-18] MEDS: SODIUM CHLOR 0.9% PF (SALINE LOCK) 10ML VIAL/SYR IV SCH ×3 (06:50→22:29)
[2023-03-18] MEDS: ACCU-CHEK COMFORT CURVE STRIP VI SCH ×3 (07:29→18:00)
[2023-03-18] MEDS: InsuLIN REG 1unit/0.01ml Soln (100units/ml) SC SCH ×5 (07:53→22:00)
[2023-03-18 07:55] VITALS: PULSE 120; RESP 17; O2SAT 98
[2023-03-18] MEDS: [UNRECOGNIZED DRUG - OTHER] PO SCH ×2 (08:00→12:00)
[2023-03-18] MEDS: PANCRELIPASE PO SCH ×2 (08:00→12:00)
[2023-03-18] MEDS: rifAXIMin 550 MG TAB PO SCH ×2 (10:00→22:00)
[2023-03-18] MEDS ORDERED: METOPROLOL SUCCINATE XL 50 MG TAB PO SCH (10:00)
[2023-03-18] MEDS ORDERED: PANTOPRAZOLE 40 MG TAB PO SCH (10:00)
[2023-03-18 10:25] LABS: Basophils # (auto) 0.1 10 ^3/uL (0-0.2); Basophils % (auto) 1.3 % (0.0-2.0); Eosinophils # (auto) 0.2 10 ^3/uL (0-0.8); Eosinophils % (auto) 1.9 % (0.0-7.0); Hematocrit 34.5 % (36.0-46.0); Hemoglobin 11.1 g/dL (12.2-16.2); Lymphocytes # (auto) 2.6 10 ^3/uL (0.4-5.4); Mean Corpuscular Hemoglobin 29.2 pg (28.0-32.0); Mean Corpuscular Hgb Conc. 32.1 g/dL (32.0-36.0); Mean Corpuscular Volume 91.1 fL (80.0-100.0); Monocytes # (auto) 0.5 10 ^3/uL (0-1.3); Monocytes % (auto) 6.2 % (0.0-12.0); Neutrophils # (auto) 5.3 10 ^3/uL (1.6-8.6); Neutrophils % (auto) 60.6 % (37.0-80.0); Red Blood Cells 3.79 10^6/uL (4.0-5.20); Red Cell Distribution Width 14.5 % (11.8-14.3); White Blood Cell 8.7 10^3/uL (4.4-10.8)
[2023-03-18 10:47] LABS: Alanine Aminotransferase 27 U/L (7-40); Albumin 3.3 g/dL (3.2-4.8); Alkaline Phosphatase 109 U/L (46-116); Anion Gap 8 (5-15); Aspartate Aminotransferase 45 U/L (13-40); BUN/Creatinine Ratio 12.5 (10.0-20.0); Bilirubin, Total 0.5 mg/dL (0.2-1.0); Blood Urea Nitrogen 9 mg/dL (9-23); Calcium 8.9 mg/dL (8.5-10.1); Carbon Dioxide 24 mmol/L (20-30); Chloride 109 mmol/L (98-107); Glucose 180 mg/dL (74-106); Potassium 3.7 mmol/L (3.5-5.1); Sodium 141 mmol/L (136-145); Total Protein 6.9 g/dL (5.7-8.2)
[2023-03-18] MEDS: ENOXAPARIN SOD 40 MG/0.4 ML SYRINGE SC SCH (11:39)
[2023-03-18] MEDS ORDERED: DEXTROSE (50%) 50ML SYRG IV PRN ×2 (14:15)
[2023-03-18] MEDS: SODIUM CHLORIDE 0.9% 1,000 ML IV SCH (15:02)
[2023-03-18] MEDS: LACTULOSE 10g/15ml SOLN 473ML PR SCH (18:07)
[2023-03-18 19:45] VITALS: PULSE 100; RESP 17; O2SAT 97
[2023-03-18] MEDS ORDERED: INSULIN LANTUS (GLARGINE) 1 /0.01ml (100units/ml) SC SCH (22:00)
[2023-03-19] VITALS (8 sets, daily range): BP systolic 137–174; BP diastolic 55–82; PULSE 100–110; RESP 16–20; TEMP 97.9–98.5; O2SAT 97–100
[2023-03-19] MEDS: LACTULOSE 10g/15ml SOLN 473ML PR SCH ×2 (00:37→06:00)
[2023-03-19] MEDS: LACTULOSE 20Gm/30ML SOLN PO SCH ×5 (01:00→22:06)
[2023-03-19] MEDS: SODIUM CHLORIDE 0.9% 1,000 ML IV SCH ×3 (02:58→18:06)
[2023-03-19] MEDS: ACCU-CHEK COMFORT CURVE STRIP VI SCH ×5 (06:53→22:19)
[2023-03-19] MEDS: SODIUM CHLOR 0.9% PF (SALINE LOCK) 10ML VIAL/SYR IV SCH ×3 (06:56→22:19)
[2023-03-19] MEDS: InsuLIN REG 1unit/0.01ml Soln (100units/ml) SC SCH ×6 (06:56→21:55)
[2023-03-19 07:18] LABS: Chloride 107 mmol/L (98-107); Potassium 3.6 mmol/L (3.5-5.1); Sodium 140 mmol/L (136-145)
[2023-03-19 07:19] LABS: Anion Gap 8 (5-15); Calcium 8.6 mg/dL (8.5-10.1); Carbon Dioxide 25 mmol/L (20-30)
[2023-03-19 07:20] LABS: Basophils # (auto) 0.1 10 ^3/uL (0-0.2); Basophils % (auto) 1.9 % (0.0-2.0); Eosinophils # (auto) 0.1 10 ^3/uL (0-0.8); Eosinophils % (auto) 1.1 % (0.0-7.0); Hematocrit 34.4 % (36.0-46.0); Hemoglobin 11.3 g/dL (12.2-16.2); Lymphocytes # (auto) 2.3 10 ^3/uL (0.4-5.4); Lymphocytes % (auto) 34.7 % (10.0-50.0); Mean Corpuscular Hemoglobin 29.2 pg (28.0-32.0); Mean Corpuscular Hgb Conc. 32.8 g/dL (32.0-36.0); Monocytes # (auto) 0.7 10 ^3/uL (0-1.3); Monocytes % (auto) 9.8 % (0.0-12.0); Neutrophils # (auto) 3.5 10 ^3/uL (1.6-8.6); Neutrophils % (auto) 52.5 % (37.0-80.0); Nucleated Red Blood Cells % 0.1 %; Red Blood Cells 3.86 10^6/uL (4.0-5.20); Red Cell Distribution Width 14.5 % (11.8-14.3); White Blood Cell 6.7 10^3/uL (4.4-10.8)
[2023-03-19 07:24] LABS: BUN/Creatinine Ratio 17.5 (10.0-20.0); Blood Urea Nitrogen 11 mg/dL (9-23); Glucose 246 mg/dL (74-106)
[2023-03-19] MEDS: hydrALAZINE HCL 20 MG/ML VL IV PRN (08:53)
[2023-03-19] MEDS ORDERED: MORPHINE SULFATE INJ 2 MG/ml SYRG IV PRN (09:30)
[2023-03-19] MEDS ORDERED: DEXTROSE (50%) 50ML SYRG IV PRN (09:30)
[2023-03-19] MEDS: ENOXAPARIN SOD 40 MG/0.4 ML SYRINGE SC SCH (10:02)
[2023-03-19] MEDS: FLORASTOR (S. BOULARDII) 250 MG CAP PO SCH (10:02)
[2023-03-19] MEDS: rifAXIMin 550 MG TAB PO SCH ×2 (10:02→22:07)
[2023-03-19] MEDS ORDERED: KETOROLAC TROMETH 30 MG/ML 1ML VIAL IV PRN (10:45)
[2023-03-19] MEDS: HYDROcodone-ACET 5/325MG TAB PO PRN ×2 (12:32→19:08)
[2023-03-19] MEDS: PANCREATIC ENZYMES 4200 UNIT CAP PO SCH ×2 (13:06→17:47)
[2023-03-19] MEDS: METOPROLOL TARTRATE 50 MG TAB PO SCH (22:07)
[2023-03-20] MEDS: LACTULOSE 20Gm/30ML SOLN PO SCH ×3 (03:09→11:14)
[2023-03-20] MEDS: HYDROcodone-ACET 5/325MG TAB PO PRN (03:13)
[2023-03-20] MEDS: hydrALAZINE HCL 20 MG/ML VL IV PRN (04:21)
[2023-03-20 05:00] VITALS: BP 165/75; PULSE 75; TEMP 98.2; O2SAT 99
[2023-03-20] MEDS: InsuLIN REG 1unit/0.01ml Soln (100units/ml) SC SCH ×2 (06:04→11:22)
[2023-03-20] MEDS: SODIUM CHLOR 0.9% PF (SALINE LOCK) 10ML VIAL/SYR IV SCH ×2 (06:06→14:00)
[2023-03-20] MEDS: SODIUM CHLORIDE 0.9% 1,000 ML IV SCH (06:06)
[2023-03-20 06:56] LABS: Chloride 106 mmol/L (98-107); Potassium 3.6 mmol/L (3.5-5.1); Sodium 139 mmol/L (136-145)
[2023-03-20] MEDS: ACCU-CHEK COMFORT CURVE STRIP VI SCH ×2 (06:56→11:14)
[2023-03-20 06:57] LABS: Anion Gap 10 (5-15); Carbon Dioxide 23 mmol/L (20-30)
[2023-03-20 06:58] LABS: Basophils # (auto) 0.1 10 ^3/uL (0-0.2); Basophils % (auto) 1.9 % (0.0-2.0); Calcium 8.7 mg/dL (8.5-10.1); Eosinophils # (auto) 0.6 10 ^3/uL (0-0.8); Eosinophils % (auto) 8.1 % (0.0-7.0); Hematocrit 34.6 % (36.0-46.0); Hemoglobin 11.2 g/dL (12.2-16.2); Lymphocytes # (auto) 3.4 10 ^3/uL (0.4-5.4); Lymphocytes % (auto) 50.5 % (10.0-50.0); Mean Corpuscular Hemoglobin 29.1 pg (28.0-32.0); Mean Corpuscular Hgb Conc. 32.5 g/dL (32.0-36.0); Mean Corpuscular Volume 89.4 fL (80.0-100.0); Monocytes # (auto) 0.7 10 ^3/uL (0-1.3); Monocytes % (auto) 10.5 % (0.0-12.0); Nucleated Red Blood Cells % 0.2 %; Red Blood Cells 3.87 10^6/uL (4.0-5.20); Red Cell Distribution Width 14.8 % (11.8-14.3); White Blood Cell 6.8 10^3/uL (4.4-10.8)
[2023-03-20 07:02] LABS: BUN/Creatinine Ratio 9.3 (10.0-20.0); Blood Urea Nitrogen 7 mg/dL (9-23); Glucose 233 mg/dL (74-106)
[2023-03-20] MEDS: PANCREATIC ENZYMES 4200 UNIT CAP PO SCH ×2 (08:31→11:15)
[2023-03-20] MEDS: rifAXIMin 550 MG TAB PO SCH (08:31)
[2023-03-20] MEDS: FLORASTOR (S. BOULARDII) 250 MG CAP PO SCH (08:32)
[2023-03-20] MEDS: METOPROLOL TARTRATE 50 MG TAB PO SCH (08:42)
[2023-03-20] MEDS: ENOXAPARIN SOD 40 MG/0.4 ML SYRINGE SC SCH (08:42)
[2023-03-20 09:00] VITALS: BP 144/62; PULSE 95; RESP 16; TEMP 98; O2SAT 97
[2023-03-20] MEDS ORDERED: HYDROcodone-ACET 5/325MG TAB PO PRN (09:00)
[2023-03-20] MEDS ORDERED: KETOROLAC TROMETH 30 MG/ML 1ML VIAL IV ONE (11:45)
[2023-03-20 13:52] VITALS: BP 144/62; PULSE 95; TEMP 36.7
[2023-03-20] MEDS ORDERED: FERROUS SULFATE 325mg EC TAB PO SCH (18:00)
== END 2023-03-20 17:10 | disposition home or self-care (01) | DRG 642 ==
LOC: EDBD 19:39 → ER 19:39 → OVERFLOW 23:55 → CENTRAL 03-19 06:00
PROVIDERS: ADMIT Internal Medicine; ATTEND Internal Medicine
DX: E72.20 Disorder of urea cycle metabolism, unspecified (principal); G92.8 Other toxic encephalopathy; E11.9 Type 2 diabetes mellitus without complications; E55.9 Vitamin D deficiency, unspecified; E04.1 Nontoxic single thyroid nodule; M54.16 Radiculopathy, lumbar region; I10 Essential (primary) hypertension; M54.50 Low back pain, unspecified; Z85.07 Personal history of malignant neoplasm of pancreas; Z88.6 Allergy status to analgesic agent; Z90.49 Acquired absence of other specified parts of digestive tract
CPT/HCPCS: 36415; 70450; 70496; 71045; 80048; 80053; 81001; 82140; 82533; 82962; 83605; 83880; 84484; 85025; 87081; 92610; 93005; 97110; 97116; 97163; 97530; G0378; J1815; J1885

== ENCOUNTER 2023-04-19 22:46 | Inpatient (IN) | payer MEDICARE, MEDICAID ==
[~2023-04-19] VITALS: Ht 162.6 cm; Wt 60.4 kg
[2023-04-20 00:34] LABS: Basophils # (auto) 0.1 10 ^3/uL (0-0.2); Basophils % (auto) 1.8 % (0.0-2.0); Eosinophils # (auto) 0.4 10 ^3/uL (0-0.8); Eosinophils % (auto) 6.7 % (0.0-7.0); Hematocrit 36.7 % (36.0-46.0); Lymphocytes # (auto) 2.6 10 ^3/uL (0.4-5.4); Lymphocytes % (auto) 41.3 % (10.0-50.0); Mean Corpuscular Hemoglobin 28.4 pg (28.0-32.0); Mean Corpuscular Hgb Conc. 32.6 g/dL (32.0-36.0); Mean Corpuscular Volume 87.1 fL (80.0-100.0); Monocytes # (auto) 0.6 10 ^3/uL (0-1.3); Monocytes % (auto) 10.3 % (0.0-12.0); Neutrophils # (auto) 2.5 10 ^3/uL (1.6-8.6); Neutrophils % (auto) 39.9 % (37.0-80.0); Nucleated Red Blood Cells % 0.1 %; Red Blood Cells 4.22 10^6/uL (4.0-5.20); Red Cell Distribution Width 14.5 % (11.8-14.3); White Blood Cell 6.2 10^3/uL (4.4-10.8)
[2023-04-20 00:53] LABS: Alanine Aminotransferase 12 U/L (7-40); Alkaline Phosphatase 183 U/L (46-116); Calcium 8.9 mg/dL (8.7-10.4)
[2023-04-20 00:54] LABS: Albumin 3.6 g/dL (3.2-4.8); Anion Gap 5 (5-15); Aspartate Aminotransferase 19 U/L (13-40); BUN/Creatinine Ratio 11.4 (10.0-20.0); Bilirubin, Total 0.3 mg/dL (0.2-1.0); Blood Urea Nitrogen 9 mg/dL (9-23); Carbon Dioxide 24 mmol/L (20-30); Chloride 107 mmol/L (98-107); Glucose 311 mg/dL (74-106); Lipase 20 U/L (12-53); Potassium 4.1 mmol/L (3.5-5.1); Sodium 136 mmol/L (136-145); Total Protein 7.8 g/dL (5.7-8.2)
[2023-04-20 00:55] LABS: Urine Bacteria FEW /hpf (None Seen); Urine Blood Negative /uL (Negative); Urine Clarity Clear (Clear); Urine Protein, UAD 1+ (Negative); Urine Specific Gravity 1.012 (1.001-1.035); Urine Urobilinogen Normal (Negative); Urine WBC 2 /hpf (0 - 5); Urine pH 5.5 (5.0-8.0)
[2023-04-20 00:56] LABS: Urine Color Straw (Yellow)
[2023-04-20] MEDS ORDERED: InsuLIN REG 1unit/0.01ml Soln (100units/ml) SC ONE (01:30)
[2023-04-20] MEDS ORDERED: MORPHINE SULFATE INJ 2 MG/ml SYRG IV ONE (01:30)
[2023-04-20] MEDS ORDERED: SODIUM CHLORIDE 0.9% 1,000 ML IV ONE (01:30)
[2023-04-20] MEDS ORDERED: ONDANSETRON HCL 4 MG/2 ML VIAL IV ONE (01:30)
[2023-04-20] MEDS ORDERED: ONDANSETRON HCL 4 MG/2 ML VIAL IV PRN (04:15)
[2023-04-20] MEDS ORDERED: ACETAMINOPHEN 325 MG TAB PO PRN (04:15)
[2023-04-20] MEDS ORDERED: DOCUSATE SOD 100 MG CAP PO PRN (04:15)
[2023-04-20] MEDS ORDERED: DEXTROSE (50%) 50ML SYRG IV PRN (04:15)
[2023-04-20] MEDS ORDERED: NITROGLYCERIN 0.4 MG SL TAB SL PRN (04:15)
[2023-04-20] MEDS ORDERED: MORPHINE SULFATE INJ 2 MG/ml SYRG IV PRN (04:15)
[2023-04-20] MEDS ORDERED: hydrALAZINE HCL 20 MG/ML VL IV PRN (04:30)
[2023-04-20] MEDS: SODIUM CHLORIDE 0.9% 1,000 ML IV SCH (05:11)
[2023-04-20] MEDS: HYDROcodone-ACET 5/325MG TAB PO PRN (05:34)
[2023-04-20] MEDS: InsuLIN REG 1unit/0.01ml Soln (100units/ml) SC SCH ×4 (07:02→22:00)
[2023-04-20] MEDS: ACCU-CHEK COMFORT CURVE STRIP VI SCH ×4 (07:05→22:00)
[2023-04-20 08:10] VITALS: RESP 18; O2SAT 97
[2023-04-20] MEDS: FAMOTIDINE (10MG/ML) 2ML VL IV SCH (10:06)
[2023-04-20] MEDS: PANCREATIC ENZYMES 4200 UNIT CAP PO SCH ×2 (12:30→22:17)
[2023-04-20] MEDS: MORPHINE SULFATE INJ 2 MG/ml SYRG IV PRN ×2 (13:24→23:25)
[2023-04-20] MEDS: LACTULOSE 20Gm/30ML SOLN PO SCH (22:18)
[2023-04-20] MEDS: rifAXIMin 550 MG TAB PO SCH (22:18)
[2023-04-20 22:20] VITALS: PULSE 81; RESP 17; O2SAT 97
[2023-04-21] VITALS (7 sets, daily range): BP systolic 112–156; BP diastolic 56–76; PULSE 74–101; RESP 16–18; TEMP 97.7–98.1; O2SAT 95–98
[2023-04-21] MEDS: MORPHINE SULFATE INJ 2 MG/ml SYRG IV PRN ×4 (03:35→22:20)
[2023-04-21] MEDS: SODIUM CHLORIDE 0.9% 1,000 ML IV SCH ×2 (03:50→14:47)
[2023-04-21 05:35] LABS: Basophils # (auto) 0.1 10 ^3/uL (0-0.2); Eosinophils # (auto) 0.7 10 ^3/uL (0-0.8); Eosinophils % (auto) 9.8 % (0.0-7.0); Hematocrit 35.4 % (36.0-46.0); Hemoglobin 11.6 g/dL (12.2-16.2); Lymphocytes % (auto) 43.5 % (10.0-50.0); Mean Corpuscular Hemoglobin 28.5 pg (28.0-32.0); Mean Corpuscular Hgb Conc. 32.8 g/dL (32.0-36.0); Mean Corpuscular Volume 86.9 fL (80.0-100.0); Monocytes # (auto) 0.7 10 ^3/uL (0-1.3); Monocytes % (auto) 9.8 % (0.0-12.0); Neutrophils # (auto) 2.4 10 ^3/uL (1.6-8.6); Neutrophils % (auto) 34.9 % (37.0-80.0); Nucleated Red Blood Cells % 0.1 %; Red Blood Cells 4.08 10^6/uL (4.0-5.20); Red Cell Distribution Width 14.3 % (11.8-14.3)
[2023-04-21 05:53] LABS: Alanine Aminotransferase 14 U/L (7-40); Albumin 3.2 g/dL (3.2-4.8); Alkaline Phosphatase 133 U/L (46-116); Anion Gap 6 (5-15); Aspartate Aminotransferase 30 U/L (13-40); Bilirubin, Total 0.8 mg/dL (0.2-1.0); Blood Urea Nitrogen 8 mg/dL (9-23); Calcium 8.7 mg/dL (8.7-10.4); Carbon Dioxide 25 mmol/L (20-30); Chloride 109 mmol/L (98-107); Glucose 142 mg/dL (74-106); Potassium 3.9 mmol/L (3.5-5.1); Sodium 140 mmol/L (136-145)
[2023-04-21] MEDS: InsuLIN REG 1unit/0.01ml Soln (100units/ml) SC SCH ×4 (06:06→22:15)
[2023-04-21] MEDS: ACCU-CHEK COMFORT CURVE STRIP VI SCH ×4 (06:09→22:14)
[2023-04-21] MEDS: PANCREATIC ENZYMES 4200 UNIT CAP PO SCH ×4 (08:00→17:50)
[2023-04-21] MEDS: FAMOTIDINE (10MG/ML) 2ML VL IV SCH (10:37)
[2023-04-21] MEDS: LACTULOSE 20Gm/30ML SOLN PO SCH ×2 (10:37→22:17)
[2023-04-21] MEDS: rifAXIMin 550 MG TAB PO SCH ×2 (10:37→22:17)
[2023-04-21] MEDS: METOPROLOL SUCCINATE XL 50 MG TAB PO SCH (10:38)
[2023-04-21] MEDS: HYDROcodone-ACET 5/325MG TAB PO PRN (15:18)
[2023-04-22] MEDS: SODIUM CHLORIDE 0.9% 1,000 ML IV SCH (01:34)
[2023-04-22 05:00] VITALS: BP 144/56; PULSE 77; RESP 19; TEMP 98.1; O2SAT 96
[2023-04-22] MEDS: MORPHINE SULFATE INJ 2 MG/ml SYRG IV PRN ×2 (06:16→11:35)
[2023-04-22] MEDS: InsuLIN REG 1unit/0.01ml Soln (100units/ml) SC SCH ×2 (06:21→12:32)
[2023-04-22] MEDS: ACCU-CHEK COMFORT CURVE STRIP VI SCH ×2 (06:21→11:31)
[2023-04-22 08:00] VITALS: PULSE 84; RESP 18; O2SAT 99
[2023-04-22 09:10] VITALS: BP 145/69; PULSE 84; RESP 20; TEMP 97.8; O2SAT 99
[2023-04-22] MEDS: rifAXIMin 550 MG TAB PO SCH (09:27)
[2023-04-22] MEDS: FAMOTIDINE (10MG/ML) 2ML VL IV SCH (09:28)
[2023-04-22] MEDS: METOPROLOL SUCCINATE XL 50 MG TAB PO SCH (09:28)
[2023-04-22] MEDS: LACTULOSE 20Gm/30ML SOLN PO SCH (09:28)
[2023-04-22] MEDS: PANCREATIC ENZYMES 4200 UNIT CAP PO SCH ×2 (09:29→12:26)
[2023-04-22] MEDS ORDERED: MAGNESIUM CITRATE SOLUTION 300 ML BTL PO ONE (10:15)
[2023-04-22] MEDS ORDERED: HYDR-4902 PO (12:34)
[2023-04-22] MEDS: HYDROcodone-ACET 5/325MG TAB PO PRN (15:39)
[2023-04-22 15:57] VITALS: BP 147/63; PULSE 82; RESP 20; TEMP 97.7; O2SAT 97
[2023-04-22 17:00] VITALS: BP 143/60; PULSE 76; RESP 20; TEMP 97.9; O2SAT 97
== END 2023-04-22 18:08 | disposition home or self-care (01) | DRG 760 ==
LOC: ER 22:46 → OVERFLOW 04-20 04:18 → WEST WING 04-20 20:20
PROVIDERS: ADMIT Nurse Practitioner Family; ATTEND Family Medicine
DX: N73.6 Female pelvic peritoneal adhesions (postinfective) (principal); K35.80 Unspecified acute appendicitis; K59.00 Constipation, unspecified; M54.16 Radiculopathy, lumbar region; E11.65 Type 2 diabetes mellitus with hyperglycemia; F17.200 Nicotine dependence, unspecified, uncomplicated; G89.29 Other chronic pain; K76.0 Fatty (change of) liver, not elsewhere classified; I10 Essential (primary) hypertension; E55.9 Vitamin D deficiency, unspecified; Z85.07 Personal history of malignant neoplasm of pancreas; Z88.6 Allergy status to analgesic agent
CPT/HCPCS: 36415; 74176; 76705; 80053; 81001; 82140; 82962; 83036; 83605; 83690; 85025; 87081; G0378; J1815; J2405; J3490